=== PATIENT | female | born 1975 | race Caucasian/White ===

== ENCOUNTER 2018-08-06 14:04 | Emergency (ER) | payer OTHER ==
[~2018-08-06] VITALS: Ht 165.1 cm; Wt 75.3 kg
[~2018-08-06 14:04] MED LIST: ALBU18HF INHALATION; LEVO137T26 PO; LORA10TA3 PO; MULTI PO; RANI150T35 PO
[2018-08-06 14:06] VITALS: Ht 165.1 cm; Wt 75.3 kg
[2018-08-06] MEDS ORDERED: SOD CHLORIDE 0.9% 500 ML IV STA (14:45)
[2018-08-06] MEDS ORDERED: LORAZEPAM 2 MG INJ IV ONE (15:00)
--- NOTE | 2018-08-06 15:13 | ERD ---
ER Documentation Chief Complaint Chief Complaint CHEST PRESSURE , HEADACHE , DIZZINESS X 3 DAYS HPI This is a 43-year-old female that has a past medical history of Graves' disease mitral valve prolapse and uterine fibroids.. The patient presents to the emergency department stating that for the past 5 days, contrary to triage note which stated 3 days, the patient indicates that for 5 days she had a persistent chest pain. She states is a sharp shooting pain in the middle of her chest. She is had palpitations. She stated the chest pain began after she felt lightheaded and dizzy and took her blood pressure and was elevated at 220/75 mmHg. The patient also indicates that she is been undergoing a significant amount of stress. She is currently taking care of her mother who has dementia. Her father after having a myocardial infarction in his 80s. The patient does not smoke tobacco. She indicates she was seen by her chief gauger for the first time Dr. Cortez 4 days prior to arrival. Her chief gauger used to be Dr. garcia a CT scan however due to insurance changes she has now seen Dr. Cortez at [facility]. She is scheduled for stress test. She has no chest pressure contrary to the triage note is she states is a sharp shooting pain. The sharp shooting pain does not radiate to the neck arm back or jaw. The patient also has a loop recorder which is been present for the past 3 days that she has a history of mitral valve prolapse. She also complains of mild shortness of breath. She does feel that this could be contributed to anxiety but she denies any shortness of breath at rest or exertion. It is only when she feels the palpitations and chest pain. She denies any recent travel or prolonged immobilization. The patient also indicates that she is been taking her blood pressure on a regular basis since the onset of symptoms 5 days ago. Her blood pressure will range between 170 mmHg and the highest has been 220 mmHg. She is taking her blood pressure roughly 4-5 times a day. She does complain of dizziness and a mild bandlike headache. She states this headache is not the worst headache of her life. She denies any changes in vision. No neck pain. No fevers or shaking or chills. ROS All systems reviewed and are negative except as per history of present illness. Medications Home Meds Reported Medications Loratadine* (Loratadine*) 10 Mg Tablet, 10 MG PO DAILY, #30 TAB 03/04/16 Albuterol Sulfate* (Ventolin HFA*) 18 Gm Hfa.aer.ad, 2 PUFF INHALATION Q6H PRN for WHEEZING AND SOB, #1 INHALER 03/04/16 Multivitamins* (Theragran*) 1 Tab Tab, 1 TAB PO DAILY, TAB 03/04/16 Levothyroxine Sodium* (Levoxyl*) 137 Mcg Tablet, 137 MCG PO BEFORE BREAKFAST, #30 TAB 03/04/16 Ranitidine Hcl* (Zantac*) 150 Mg Tablet, 150 MG PO BID, TAB 03/14/14 Allergies Allergies: Coded Allergies: naproxen (Verified Allergy, Mild, 03/04/16) Penicillins (Verified Adverse Reaction, Mild, DIARRHEA,UPSET STOMACH, 03/04/16) erythromycin base (Verified Adverse Reaction, Mild, DIARRHEA,UPSET STOMACH, 03/04/16) sulfamethoxazole (Verified Adverse Reaction, Mild, DIARRHEA, 03/04/16) trimethoprim (Verified Adverse Reaction, Mild, DIARRHEA, 03/04/16) PMhx/Soc History of Surgery: Yes (CHOLECYSTECTOMY, C/S X2, SEPTOPLASTY, HYSTEROSCOPY, EAR SX) Anesthesia Reaction: No Hx Neurological Disorder: No Hx Respiratory Disorders: Yes (ASTHMA) Hx Cardiac Disorders: Yes (HTN) Hx Psychiatric Problems: No Hx Miscellaneous Medical Probl: No Hx Alcohol Use: No Hx Substance Use: No Hx Tobacco Use: No Smoking Status: Never smoker Physical Exam Vitals Vital Signs Date Temp Pulse Resp B/P (MAP) Pulse Ox O2 O2 Flow FiO2 Time Delivery Rate 08/06/18 98.1 86 18 140/58 98 14:06 (85) Physical Exam Constitutional:Well-developed. Well-nourished. HEENT:Normocephalic. Atraumatic.Pupils were equal round reactive to light. Moist mucous membranes.No tonsillar exudates. Funduscopy exam shows sharp optic disks and venous pulsations are present Neck: No nuchal rigidity. No lymphadenopathy. No posterior cervical spine tenderness or step-offs. Respiratory: Not using accessory muscles of respiration.Lungs were clear to auscultation bilaterally. No rhonchi. No rales. No wheezing. Cardiovascular: Regular rate regular rhythm.No murmurs. No rubs were appreciate d.S1, S2 normal. Distal pulses are palpable 2+ bilaterally. Reproducible mid substernal chest wall tenderness with no crepitus no ecchymosis no flail chest GI: Abdomen was soft. Nontender. Non Distended. No pulsatile abdominal masses or bruits. No rebound. No guarding. Bowel sounds were present and normal. Muscle skeletal: Full range of motion of both the upper and lower extremities bilaterally.Normal muscle tone.No assymetrical calf tenderness or swelling. Skin: No petechia, no purpura. No lesions on the palms or the soles of the feet. No maculopapular rash. NEURO: Patient was alert, awake, orientated x3.No facial droop. Gait observed and normal with no ataxia.Speech had regular rate and rhythm. No focal neurological deficits. Results 24 hrs Laboratory Tests Test 08/06/18 14:42 08/06/18 15:01 POC Beta HCG, Qualitative NEGATIVE White Blood Count Pending Red Blood Count Pending Hemoglobin Pending Hematocrit Pending Mean Corpuscular Volume Pending Mean Corpuscular Hemoglobin Pending Mean Corpuscular Hemoglobin Concent Pending Red Cell Distribution Width Pending Platelet Count Pending Mean Platelet Volume Pending Current Medications Medications Dose Sig/Emma Start Time Status Last (Trade) Ordered Route PRN Stop Time Admin Dose Reason Admin Sodium 500 ml @ Q1H STAT 08/06/18 08/06/18 Chloride 500 mls/hr IV 14:45 08/06/18 14:56 15:44 Lorazepam 0.5 mg ONCE ONCE 08/06/18 DC 08/06/18 (Ativan) IV 15:00 08/06/18 14:56 15:01 Procedures/MDM The patient presented to the emergency department complaining of chest pain. My clinical evaluation and workup was to distinguish minor causes of chest pain from acute life threatening cardiopulmonary causes such as myocardial infarction, pulmonary embolism, aortic dissection, esophageal rupture, cardiac tamponade, The patient was placed on a cardiac care unit nurse, continuous pulse oximetry and IV access established by nursing staff. 12 Lead EKG tracing ordered and reviewed by myself showed: Normal sinus rhythm of 80 bpm and no arrhythmia. CA interval normal. QRS duration normal. No ST segment elevation No ST segment depression. No changes consistent with acute ischemia. The patients chest pain was reproduced by palpation and horizontal flexion of the arms. It was my clinical impression that the pain was a result of inflammation of the skin and subcutaneous structures of the chest wall versus myocardial ischemia. I felt the patient had low-risk chest pain and could therefore be safely discharged with close follow-up. As obtained a chest radiograph which showed no infiltrates pneumothorax or pleural effusions. The patient was also complaining of shortness of breath. There is no physical exam findings to suggest congestive heart failure. The patient is a low pretest probability according to the Wells criteria for pulmonary embolism. Therefore obtained a d-dimer and this was negative. The patient had recorded her blood pressure and had been having severe hypertension over the past several days. I have obtained a CT scan the patient's head there is no intracerebral hemorrhage mass-effect or midline shift. I did also administer Ativan and IV fluids to the patient she did appear to be undergoing an acute stress reaction in addition to all of her symptoms. The patient has very good outpatient follow-up as she has a stress test scheduled with Dr. Cortez. Her blood pressure was well controlled while in the emergency department. I will administer a prescription of clonidine to take if needed if her blood pressure becomes severely elevated on a as needed basis. She felt comfortable being discharged home. Departure Diagnosis: Primary Impression: Pleuritic chest pain Additional Impressions: Shortness of breath Accelerated hypertension Condition: GREG Garcia MD Aug 06, 2018 15:13
[2018-08-06] MEDS ORDERED: MONT10TA24 PO (16:28)
[2018-08-06] MEDS ORDERED: LEVO125T7 PO (16:28)
[2018-08-06] MEDS ORDERED: BECL10.62 IH (16:29)
[2018-08-06] MEDS ORDERED: LORA10TA3 PO (16:29)
[2018-08-06] MEDS ORDERED: OMEP20CA16 PO (16:30)
[2018-08-06] MEDS ORDERED: ALBU18HF INHALATION (16:30)
[2018-08-06] MEDS ORDERED: MAGN250T10 PO (16:31)
[2018-08-06] MEDS ORDERED: CLON-379 PO (19:45)
[2018-08-06 20:46] VITALS: BP 111/46; PULSE 73; RESP 18
== END 2018-08-06 20:53 | disposition home or self-care (01) ==
LOC: E/R 14:04
DX: I10 Essential (primary) hypertension (principal); J45.901 Unspecified asthma with (acute) exacerbation; R42 Dizziness and giddiness; R40.2142 Coma scale, eyes open, spontaneous, at arrival to emergency department; R40.2362 Coma scale, best motor response, obeys commands, at arrival to emergency department; R40.2252 Coma scale, best verbal response, oriented, at arrival to emergency department
CPT/HCPCS: 70450; 71045; 80053; 81001; 81025; 83880; 84484; 85025; 85378; 85610; 85730; 93005; 96374; 99285; J2060; J7040